=== PATIENT | female | born 1940 | race Caucasian/White ===

== ENCOUNTER 2017-08-15 05:05 | Inpatient (IN) | payer MEDICARE ==
[2017-08-15] MEDS ORDERED: Ondansetron ODT 4 MG TAB ONE ×2 (05:25→06:43)
[2017-08-15 05:33] LABS: #Eosinphils 0.1 thou/uL (0.0-0.7); #Lymphocytes 2.9 thou/uL (1.20-3.40); #Monocytes 0.5 thou/uL (0.11-0.59); #Neutrophils 3.3 thou/uL (1.40-6.50); %Basophils 0.5 % (0.0-1.0); %Lymphocytes 42.4 % (21.0-51.0); %Monocytes 7.2 % (0.0-10.0); %Neutrophils 47.9 % (42.0-75.0); Hemoglobin 15.4 g/dL (12.0-16.0); Mean Corpuscular HGB CONC 34.7 g/dL (32.0-36.0); Mean Corpuscular Hemoglobin 31.2 pg (27.0-31.0); Mean Corpuscular Volume 90.1 fl (81.0-99.0); Mean Platelet Volume 7.8 fL (7.4-10.4); Platelet Count 215 thou/uL (130-400); RBC Distribution Width 11.8 % (11.5-14.5); Red Blood Cell (RBC) Count 4.94 mill/uL (4.20-5.40); White Blood Cell (WBC) Count 6.9 thou/uL (4.8-10.8)
[2017-08-15] MEDS ORDERED: Fentanyl 100 MCG/2 ML VIAL ONE (05:33)
[2017-08-15 05:49] LABS: ALT (SGPT) 23 U/L (8-55); AST (SGOT) 29 U/L (5-34); Albumin 4.1 g/dL (3.4-4.8); Alkaline Phosphatase 41 U/L (40-150); Anion Gap 13 mmol/L (10-20); BUN (Urea Nitrogen) 17 mg/dL (9.8-20.1); Bilirubin, Total 0.8 mg/dL (0.2-1.2); Calc. Creatinine Clearance 0 mL/min (70-130); Calcium 8.9 mg/dL (7.8-10.44); Carbon Dioxide 22 mmol/L (23-31); Chloride 106 mmol/L (98-107); Estimated GFR-MDRD 63; Globulin 3.3 g/dL (2.4-3.5); Glucose 155 mg/dL (83-110); Potassium 3.9 mmol/L (3.5-5.1); Protein, Total 7.4 g/dL (6.0-8.3); Sodium 137 mmol/L (136-145)
[2017-08-15] MEDS ORDERED: Iopamidol 370 76% 50 ML VIAL FS ONE (06:33)
[2017-08-15] MEDS ORDERED: ISOVUE-370 76%-LOCM 1 ML ONE (06:33)
--- NOTE | 2017-08-15 07:54 | CT ---
ABDOMEN CT WITH CONTRAST PELVIC CT WITH CONTRAST: HISTORY: Abdominal pain. Symptoms x the last 3-4 hours. Previous cholecystectomy and ovarian cyst removal. COMPARISON: None. TECHNIQUE: Abdomen and pelvic CT performed with IV and oral contrast. Coronal reformatted images are submitted for interpretation. FINDINGS: ABDOMEN CT: Dependent atelectatic changes. Normal heart size. No significant pericardial fluid. The descending thoracic aorta and abdominal aorta have a normal caliber. No periaortic fat stranding. Dilation of the intra- and extrahepatic biliary system due to previous cholecystectomy. Intra- and e xtrahepatic portal veins are patent. Liver, spleen, pancreas, and adrenal glands have appropriate enhancement. Subcentimeter hypodensity in the left and right renal cortex, too small to characterize but statistic ally favored to be cyst. Bilaterally, no hydronephrosis, nephrolithiasis, or perinephric fat strandi ng. Bilateral ureters have a normal caliber. No hydroureter, periureteral fat stranding, or uretero lithiasis. No gastrohepatic, retrocrural, or periportal lymphadenopathy. No mesenteric mass, lymphadenopathy, free air, or free fluid. There are multiple mildly prominent fluid-filled lops of mid to distal small bowel. An early/partial obstructive process cannot be excluded. There is predominantly fluid attenuation in the right hemic olon. The left hemicolon is decompressed. Surgically absent appendix is noted. PELVIC CT: Uterus and adnexal structures are unremarkable. No pelvic mass, lymphadenopathy, free air, or free f luid. No lytic or blastic lesions in the osseous structures. IMPRESSION: Fluid-filled loops of small bowel and colon. Correlate for infectious or inflammatory process. Ther e are mildly prominent loops of small bowel. Correlate for an early obstructive/partially obstructiv e process versus a developing ileus. Continued surveillance is warranted. POS: [facility]
[2017-08-15 08:15] LABS: Bilirubin Negative (Negative); Blood, Urine Negative (Negative); Clarity CLEAR (Clear); Glucose, Urine (Dipstick) Negative (Negative); Leukocyte Negative (Negative); Nitrite Negative (Negative); Protein, Urine (Dipstick) Negative (Neg-Trace); Urobilinogen 0.2 mg/dL (0.2-1.0)
[2017-08-15 08:21] LABS: Specific Gravity, Urine 1.043 (1.002-1.036)
[2017-08-15] MEDS ORDERED: Lidocaine Viscous Sol 2% 15 ml UD Cup ONE (08:34)
[2017-08-15] MEDS ORDERED: Benzocaine 20% Spray 60 ML CAN ONE (08:34)
--- NOTE | 2017-08-15 09:29 | RAD ---
CHEST ONE VIEW: History: Tube placement. Comparison: CT prior day. FINDINGS: There is contrast in the urinary bladder. Enteric tube tip is in the gastric body. Side port is near the GE junction. Right upper quadrant surgical clips. IMPRESSION: Enteric tube sideport near the GE junction. Recommend advancing 3 cm. POS: [facility]
[2017-08-15] MEDS ORDERED: Acetaminophen 650 MG Suppository PR PRN (10:06)
[2017-08-15] MEDS ORDERED: Ondansetron HCl/PF 4 MG/2 ML Vial IVP PRN (10:06)
[2017-08-15] MEDS ORDERED: Morphine 4 MG/ML VIAL IV PRN (10:46)
--- NOTE | 2017-08-15 10:46 | HP ---
[facility]TON [facility]UFTER: Dr. Wei REASON FOR ADMISSION: Abdominal pain. HISTORY OF PRESENT ILLNESS: This is a 77-year-old female with a minimal past medical history who presents with a chief complaint of abdominal pain, specifically to her right lower quadrant that occurred earlier today and has been ongoing for the last 3-4 hours and appears to be still actively uncomfortable. History includes a 4-5 day of vomiting and diarrhea without any fever. Abdominal pain has occurred after her vomiting and her diarrhea it appears. Denies any prior similar issues. Denies any known sick contacts. REVIEW OF SYSTEMS: As per HPI. CONSTITUTIONAL: No recent significant weight changes. No fevers, no chills. HEENT: No new headaches or vision changes. CARDIOVASCULAR: No accompanying chest pain or chest pressure. RESPIRATORY: No accompanying shortness of breath, dyspnea with exertion or recent upper respiratory infection. No recent cough. GASTROINTESTINAL: As noted above. No blood in stool or emesis which has been described as mostly bilious. GENITOURINARY: No recent dysuria, changes in urinary frequency or quality. MUSCULOSKELETAL: No new myalgias or arthralgias. Pain is limited to abdomen without overt radiation of symptoms. The remainder of the review of systems otherwise negative. PAST MEDICAL HISTORY: No active medical issues for which the patient is taking any medications. PAST SURGICAL HISTORY: 1. Status post cholecystectomy. 2. Status post ovarian cyst removal. No other surgeries. MEDICATIONS: No medications. No recent over the counter herbal or supplemental or vitamins. ALLERGIES: No known drug allergies. SOCIAL HISTORY: The patient is . is with her at bedside. No active alcohol, illicit drug use or tobacco use. Patient resides in [place], [place] and is currently in town visiting family. CODE STATUS: Patient is full code at this point in time. FAMILY HISTORY: No known family history of gastric cancer, GI cancer, colitis, or other gastrointestinal illness. PHYSICAL EXAMINATION: GENERAL: The patient is awake, alert, lying on the hospital stretcher, does not appear comfortable, but is not in donita distress. HEENT: Normocephalic, atraumatic. Ocular motions are intact. Moist mucous membranes. CARDIOVASCULAR: S1, S2. No murmurs, rubs or gallops. EXTREMITIES: Pulses 2+ bilateral upper extremities, no pitting pedal edema 2+ bilateral lower extremities pulses. RESPIRATORY: Reasonable air movement. No conversational dyspnea. No wheezes, rales or rhonchi. ABDOMEN: Decreased bowel sounds, but still present. Mild distention, but not overtly protuberant, not tense. No fluid wave. Tender to palpation throughout , but subjectively more so in the right lower quadrant. MUSCULOSKELETAL: Able to move all 4 extremities and self-reposition in the bed without difficulty or assistance. LABORATORY DATA AND IMAGING: WBC 6.9, hemoglobin 15.4, hematocrit 44.5, platelets 215. Sodium 137, potassium 3.9, chloride 106, bicarbonate 22, BUN 17 , creatinine 0.88, glucose 155, lactic acid 2.0, calcium 8.9, total bilirubin 0.8, AST 29, ALT 23, alkaline phosphatase 41. Serum total protein 7.4, albumin 4.1. UA significant for 1.043 specific gravity, but is otherwise bland. 08/15/2017 - CT of the abdomen and pelvis. Impression; fluid filled loops of small bowel and colon. Correlate for infectious or inflammatory process. There are mildly prominent loops of small bowel. Correlate for early obstructive partially obstructive process versus a developing ileus. Continued surveillance is warranted. 08/15/2017 - Abdominal x-ray at 9:01 a.m. Impression: Enteric tube site port near the GE junction. Recommend advancing 3 cm. ASSESSMENT AND PLAN: A 77-year-old female presenting with abdominal pain, nausea, and vomiting. 1. Abdominal pain, nausea, vomiting. Imaging concerning for the possibility of early partial small-bowel obstruction versus ileus. The patient to be currently placed n.p.o., IV fluids normal saline 100 mL an hour initiated. The patient does not have any overt electrolyte abnormalities at this point in time , we will continue to closely monitor intake and output. NG tube placement with close monitoring of NG fluid. Gastroenterology has been consulted from the emergency department. The patient will be warranted for serial abdominal examination. The patient is currently afebrile without leukocytosis. No empiric antibiotics unless surgery is anticipated or if there are any signs or symptoms concerning for infection. The patient's greatest risk factors are a history of 2 prior unknown intra-abdominal surgeries otherwise. DIET: N.p.o. ACTIVITY: As tolerated. PROPHYLAXIS: DVT prophylaxis with heparin in case the patient has a need for emergent surgery. I have discussed the above with the patient and her at bedside. Thank you for asking me care for the patient. Admit to inpatient. [facility]
[2017-08-15] MEDS: Sodium Chloride 0.9% 1,000 ML IV SCH ×2 (11:10→21:09)
[2017-08-15 11:58] VITALS: BMI 21.5
[2017-08-15] MEDS: Heparin 5,000 UNITS/ML VIAL SC SCH ×2 (15:23→21:07)
[2017-08-15] MEDS: Famotidine/PF 20 mg/2ml Vial SLOW IVP SCH (21:11)
--- NOTE | 2017-08-15 22:06 | CON ---
DATE OF CONSULTATION: 08/15/2017 HISTORY OF PRESENT ILLNESS: The patient is a 77-year-old female, who was in her normal state of health until a few days prior to admission when she developed some abdominal bloating and fullness and loose stools. She then had some abdominal pain and some vomiting, and sought care in the emerge ncy room. She has not had any prior episodes like this. She denies any weight loss. She denies any fever or chills. The patient apparently ate some bad food when this began. She has not had any bow el movement since this started. PAST MEDICAL HISTORY: Cholecystectomy, ovarian cyst. MEDICATIONS: None. ALLERGIES: No known medical allergies. SOCIAL HISTORY: She does not smoke or drink. FAMILY HISTORY: Negative for GI or liver disease. REVIEW OF SYSTEMS: Constitutional: No fever or chills. No weight loss. Eyes: No blurred vision o r double vision. ENT: No sore throat or earaches. Cardiovascular: No chest pain or palpitation. Pulmonary: No shortness of breath, cough, or wheezing. Skin: No rashes. Gastrointestinal: See ab chen. Genitourinary: No hematuria or dysuria. Musculoskeletal: No joint pain or muscle weakness. Neurologic: No numbness or seizure activity. PHYSICAL EXAMINATION: VITAL SIGNS: Temperature is 98.1, pulse 75, respiratory rate 12, blood pressure 128/73. HEENT: Unremarkable. NECK: Supple. CHEST: Clear. CARDIOVASCULAR: Regular rate and rhythm. ABDOMEN: Soft, nontender, diffusely tympanitic. Bowel sounds are present. RECTAL: Deferred. EXTREMITIES: Normal. NEUROLOGIC: Nonfocal. LABORATORY DATA: Normal urinalysis. Normal chemistry panel except for glucose of 155, CO2 of 22. C BC is essentially normal. CT of the abdomen and pelvis shows fluid filled loops of small bowel and c olon, correlate for infectious or inflammatory process. Small bowel loops are mildly prominent. Abd ominal film showed the NG tube at the GE junction, recommended advancing the tube. ASSESSMENT: Ileus versus colonic obstruction. RECOMMENDATIONS: 1. We will get surgery to help follow along with the patient. 2. May need a Gastrografin small bowel series and/or possible colonoscopy.
[2017-08-16 05:27] LABS: #Eosinphils 0.2 thou/uL (0.0-0.7); #Lymphocytes 1.9 thou/uL (1.20-3.40); #Monocytes 0.6 thou/uL (0.11-0.59); #Neutrophils 4.1 thou/uL (1.40-6.50); %Basophils 0.4 % (0.0-1.0); %Eosinophils 2.2 % (0.0-10.0); %Lymphocytes 28.2 % (21.0-51.0); %Monocytes 8.5 % (0.0-10.0); %Neutrophils 60.7 % (42.0-75.0); Hemoglobin 13.2 g/dL (12.0-16.0); Mean Corpuscular HGB CONC 34.2 g/dL (32.0-36.0); Mean Corpuscular Hemoglobin 30.6 pg (27.0-31.0); Mean Corpuscular Volume 89.3 fl (81.0-99.0); Mean Platelet Volume 7.2 fL (7.4-10.4); Platelet Count 165 thou/uL (130-400); RBC Distribution Width 11.8 % (11.5-14.5); Red Blood Cell (RBC) Count 4.31 mill/uL (4.20-5.40); White Blood Cell (WBC) Count 6.8 thou/uL (4.8-10.8)
[2017-08-16 05:43] LABS: Anion Gap 8 mmol/L (10-20); BUN (Urea Nitrogen) 8 mg/dL (9.8-20.1); Calc. Creatinine Clearance 56 mL/min (70-130); Carbon Dioxide 25 mmol/L (23-31); Chloride 110 mmol/L (98-107); Estimated GFR-MDRD 83; Glucose 86 mg/dL (83-110); Potassium 3.2 mmol/L (3.5-5.1); Sodium 140 mmol/L (136-145)
[2017-08-16] MEDS: Sodium Chloride 0.9% 1,000 ML IV SCH ×2 (05:57→14:49)
--- NOTE | 2017-08-16 07:33 | PDOC.EVN ---
Event Note - Event Note Event Note: Full dictation to follow. I suspect enteritis/colitits of uncertain etiology. NG mostly spit. No bile. Will try clamping trial. No need for surgical intervention today but will follow.
--- NOTE | 2017-08-16 07:50 | CON ---
DATE OF CONSULTATION: 08/16/2017 CHIEF COMPLAINT: Abdominal pain, cramping, diarrhea and vomiting. HISTORY OF PRESENT ILLNESS: This is a 77-year-old female, very healthy. No significant chronic medi rabia problems who presents with a 3-4 day history of multiple loose stools a day associated with nause a, vomiting any time she ate anything solid. This was associated with pretty severe cramping. Admit anam to the hospital. Dr. Arreola has seen and consulted me last night. CT scan shows dilation and flui d accumulation in both colon and intestine without obvious transition point, a small amount of free f luid, no obvious abscess or perforation. The patient does not note these of these symptoms. There i s no previous history of these symptoms. No history of chronic irritable or inflammatory bowel disea se. She has had open cholecystectomy and open gynecologic procedure in the past. No sick contacts. No foreign travel. PAST MEDICAL HISTORY: Negative. PAST SURGICAL HISTORY: Open cholecystectomy, open ovarian cystectomy. MEDICINES: None. ALLERGIES: None. SOCIAL HISTORY: No smoking, alcohol or other drugs. She is . REVIEW OF SYSTEMS: Ten system review of systems otherwise negative unless described above. FAMILY HISTORY: Noncontributory to GI malignancy or anesthetic related complication. PHYSICAL EXAMINATION: VITAL SIGNS: Blood pressure 120/72, pulse 61. She is afebrile, respirations 18. GENERAL: Alert, in no acute distress. NG tube in place. HEENT: Sclerae are anicteric. Oropharynx clear. NECK: No lymphadenopathy. CHEST: Clear. HEART: Regular rate and rhythm. ABDOMEN: Soft, nondistended, mildly tender diffusely. No rebound, no guarding. No abdominal or ing uinal hernias. LABORATORY: White blood cell count is 6, hemoglobin 13, platelet count is 165, creatinine is 0.69. Urine is clear. X-RAY FINDINGS: CT scan shows fluid filled intestine and colon consistent with ileus, partial small- bowel obstruction, enteritis colitis. ASSESSMENT: I suspect enteritis colitis. She has minimal NG tube output. She is still having some loose stools. I do not think she needs any surgical intervention at this time, but will follow. Pro bably send some stool for cultures. Clamp the NG if it is not putting out much over the next several hours, it can probably be removed and she could be started on a clear liquid diet. I suspect she w ill improve with conservative treatment.
[2017-08-16] MEDS: Heparin 5,000 UNITS/ML VIAL SC SCH ×3 (09:18→20:19)
[2017-08-16] MEDS: Famotidine/PF 20 mg/2ml Vial SLOW IVP SCH (10:02)
[2017-08-16 10:40] LABS: Potassium 3.4 mmol/L (3.5-5.1)
--- NOTE | 2017-08-16 12:57 | PRG ---
DATE OF SERVICE: 08/16/2017 SUBJECTIVE: The patient is feeling better today. She has had 2 bowel movements which she reports ar e watery. She is having no nausea, vomiting, no abdominal pain. OBJECTIVE: VITAL SIGNS: Temperature 97.6, pulse 65, respiratory rate 18, blood pressure 155/68. CHEST: Clear. CARDIOVASCULAR: Regular rate and rhythm. ABDOMEN: Soft, nontender, slightly tympanitic. LABORATORY DATA: Shows an essentially normal CBC. Chemistry panel shows potassium of 3.2, BUN of 8. ASSESSMENT: Gastroenteritis with possible ileus. RECOMMENDATIONS: 1. Agree with clamping NG and removing if she has no nausea or vomiting. 2. Clear liquids. 3. Stool studies. 4. Colonoscopy as an outpatient.
[2017-08-16] MEDS ORDERED: Clopidogrel Bisulfate 75 MG TAB ONE (19:42)
[2017-08-16] MEDS ORDERED: Pantoprazole 40 MG VIAL IVP SCH (21:00)
--- NOTE | 2017-08-17 00:28 | PDOC.PN ---
- Subjective Encounter Start Date: 08/16/17 Encounter Start Time: 10:00 Subjective: f/u for partial SBO, nsg notes rev, denies n/v/abd pain, NGT currently -: clamped, at bedside, no new c/o, wants to know if she can have -: her colo done during this hospitalization - Objective Resuscitation Status: Resuscitation Status FULL:Full Resuscitation Vital Signs & Weight: Vital Signs (12 hours) Temp Pulse Resp BP Pulse Ox 08/16/17 23:49 98.4 F 58 L 18 121/66 95 08/16/17 20:19 97.8 F 60 16 08/16/17 19:44 97.8 F 60 16 147/76 H 95 08/16/17 17:03 98 F 63 16 131/66 96 Weight Admit Weight 110 lb 3.696 oz Weight 110 lb 3.696 oz I&O: 08/15/17 08/16/17 08/17/17 06:59 06:59 06:59 Intake Total 1900 1750 Output Total 160 Balance 1740 1750 Result Diagrams: 08/16/17 04:37 08/16/17 10:11 Phys Exam - Physical Examination Constitutional: NAD lying in hospital bed, NGT in place, clamped HEENT: moist MMs, sclera anicteric Respiratory: no wheezing, no rales, no rhonchi, clear to auscultation bilateral Cardiovascular: RRR, no significant murmur, no rub Gastrointestinal: soft, non-tender, no distention, positive bowel sounds Musculoskeletal: no edema, pulses present Neurological: moves all 4 limbs Psychiatric: normal affect, A&O x 3 Dx/Plan - Plan * partial SBO * apprec GI c/s * apprec surg c/s * NGT clamped, possible initiation of clear liq diet if joe post time frame * pt wondering if she can have a colo completed during this hospitalization hypokalemia * recheck very minimally hypokalemia * did have loose BM x2, pending stool studies and cultures * recheck BMP in AM diet: as per above activity: as joe dvt ppx Review of Systems - Medications/Allergies Allergies/Adverse Reactions: Allergies Allergy/AdvReac Type Severity Reaction Status Date / Time No Known Allergies Allergy Verified 08/15/17 11:56 Medications: Current Medications Acetaminophen (Tylenol) 650 mg NH Q4H PRN PRN Reason: Headache/Fever or Pain Heparin Sodium (Porcine) (Heparin) 5,000 units SC TID [facility] Last Admin: 08/16/17 20:19 Dose: 5,000 units Sodium Chloride (Normal Saline 0.9%) 1,000 mls @ 100 mls/hr IV .Q10H [facility] Last Admin: 08/16/17 14:49 Dose: 1,000 mls Morphine Sulfate (Morphine) 1 mg IV Q4H PRN PRN Reason: Pain Ondansetron HCl (Zofran) 4 mg IVP Q6H PRN PRN Reason: Nausea/Vomiting Pantoprazole Sodium (Protonix) 40 mg IVP 2100 [facility] Last Admin: 08/16/17 20:20 Dose: 40 mg Sodium Chloride (Flush - Normal Saline) 10 ml IVF Q12HR [facility] Last Admin: 08/16/17 20:20 Dose: Not Given Sodium Chloride (Flush - Normal Saline) 10 ml IVF PRN PRN PRN Reason: Saline Flush
[2017-08-17] MEDS: Sodium Chloride 0.9% 1,000 ML IV SCH ×3 (02:05→11:52)
[2017-08-17 06:09] LABS: #Eosinphils 0.3 thou/uL (0.0-0.7); #Lymphocytes 2.3 thou/uL (1.20-3.40); #Monocytes 0.4 thou/uL (0.11-0.59); %Basophils 0.5 % (0.0-1.0); %Eosinophils 4.3 % (0.0-10.0); %Lymphocytes 32.4 % (21.0-51.0); %Neutrophils 56.7 % (42.0-75.0); Hemoglobin 13.5 g/dL (12.0-16.0); Mean Corpuscular HGB CONC 36.2 g/dL (32.0-36.0); Mean Corpuscular Hemoglobin 32.3 pg (27.0-31.0); Mean Corpuscular Volume 89.3 fl (81.0-99.0); Mean Platelet Volume 7.7 fL (7.4-10.4); Platelet Count 167 thou/uL (130-400); RBC Distribution Width 11.5 % (11.5-14.5); Red Blood Cell (RBC) Count 4.18 mill/uL (4.20-5.40)
[2017-08-17 06:21] LABS: Anion Gap 9 mmol/L (10-20); BUN (Urea Nitrogen) 8 mg/dL (9.8-20.1); Calc. Creatinine Clearance 57 mL/min (70-130); Calcium 8.7 mg/dL (7.8-10.44); Carbon Dioxide 25 mmol/L (23-31); Chloride 108 mmol/L (98-107); Estimated GFR-MDRD 86; Glucose 85 mg/dL (83-110); Potassium 3.5 mmol/L (3.5-5.1); Sodium 138 mmol/L (136-145)
[2017-08-17] MEDS: Heparin 5,000 UNITS/ML VIAL SC SCH ×2 (09:02→14:17)
--- NOTE | 2017-08-17 09:26 | RAD ---
UPRIGHT AND SUPINE ABDOMINAL RADIOGRAPHS: DATE: 08/17/17. HISTORY: Small bowel obstruction. COMPARISON: 08/15/17. FINDINGS: There is contrast seen within the colon on today's examination. No dilated lops of small bowel are a ppreciated on this exam. Surgical clips again overlie the right abdomen. Again noted is eventration /elevation of the right hemidiaphragm. Limited visualized lung bases are clear. Contrast within the urinary bladder noted on the prior study is no longer seen. Nasogastric tube has been removed. No other interval change. IMPRESSION: Residual contrast within the colon. No dilated loops of small bowel are appreciated. POS: [facility]
--- NOTE | 2017-08-17 09:35 | PRG ---
DATE OF SERVICE: 08/17/2017 SUBJECTIVE: Ms. Guido feels better. She tolerated the clear liquid diet without difficulty. Ther e is no more cramping, no more nausea, not passing any stools in the last 24 hours. PHYSICAL EXAMINATION: VITAL SIGNS: Blood pressure 119/70, pulse 61, respirations 16. She is afebrile. ABDOMEN: Soft, nontender, and nondistended. She has active bowel sounds. LABORATORY DATA: White cell count is 7, hemoglobin 13, sodium 138, potassium 3.5, creatinine 0.67. ASSESSMENT: Abdominal pain, bloating, resolved. PLAN: Full liquid diet for the rest of today if tolerates, then likely discharge home tomorrow.
[2017-08-17 16:15] VITALS: BP 121/71; TEMP 98.3
--- NOTE | 2017-08-17 19:09 | PRG ---
DATE OF SERVICE: 08/17/2017 SUBJECTIVE: The patient is eating well now. NG is out and she is doing well. She has had no bowel movement. OBJECTIVE: VITAL SIGNS: Temperature 98.3, pulse 65, respiratory rate 16, and blood pressure 121/71. CHEST: Clear. CARDIOVASCULAR: Regular rate and rhythm. ABDOMEN: Benign. LABORATORY DATA: CBC is normal. Chemistry shows BMP to be essentially normal. ASSESSMENT: Enteritis - improving. RECOMMENDATIONS: 1. Advance diet. 2. Stable for discharge from GI standpoint. 3. We will set up for outpatient colonoscopy in a week or two.
== END 2017-08-17 18:50 | disposition home or self-care (01) | DRG 390 ==
LOC: ERS 05:05 → SURG B 09:13
PROVIDERS: ADMIT Internal Medicine; ATTEND Internal Medicine
DX: K56.7 Ileus, unspecified (principal); K52.9 Noninfective gastroenteritis and colitis, unspecified; Z90.49 Acquired absence of other specified parts of digestive tract
CPT/HCPCS: 36415; 74018; 74019; 74177; 80048; 80053; 81003; 83605; 85025; 86140; 93005; 96361; 96374; A4216; C9113; J1644; J2405; J3010; Q0162; S0028